=== PATIENT | female | born 2005 | race Two or more races ===

== ENCOUNTER 2025-02-21 01:48 | Emergency (ER) | payer MEDICAID, SELFPAY ==
[2025-02-21 02:15] VITALS: BP 136/87; PULSE 105; RESP 18; TEMP 37.1; O2SAT 99
--- NOTE | 2025-02-21 02:42 | XR_ITS ---
Examination: Knee, right , 3 views Technique: Knee AP, lateral, oblique 3 views Date and time of exam: February 22, 2024 0241 hours INDICATIONS: Onset knee pain Site FINDINGS: No fracture or dislocation. No significant arthritic change IMPRESSION: No fracture. No significant arthritic change.
--- NOTE | 2025-02-21 02:42 | XR_ITS ---
Examination: Knee, left , 3 views Technique: Knee AP, lateral, oblique 3 views Date and time of exam: February 21, 2025 0241 hours INDICATIONS: Knee pain beginning last night. FINDINGS: Adequate bone density. No fracture or dislocation. No arthritic change. IMPRESSION: Negative examination
--- NOTE | 2025-02-21 02:45 | PD.EDLOWEX ---
Lower Extremity Injury RME/HPI General Chief Complaint: Extremity Injury, Lower Stated Complaint: BILATERAL KNEE PAIN Time Seen by Provider: 02/21/25 01:54 Arrival date/time: 02/21/25 01:48 RME / HPI RME / HPI Narrative: 19-year-old female presents to the ED with a complaint of bilateral knee pain. She denies any recent injury however she states she did start working in the [employer] last week and having to perform a lot of walking on uneven ground wearing hiking boots. She denies any heavy lifting. She states she had no pain while working or over the weekend, but the pain just began tonight after she went to bed. She denies any fever, chills, upper respiratory complaints, thigh pain or calf pain. She took a Tylenol prior to arrival. Related Data Previous Rx's ?Medication ?Instructions ?Recorded ibuprofen 600 mg tablet 600 mg PO Q8H PRN pain #30 tabs 02/21/25 Allergies Allergy/AdvReac Type Severity Reaction Status Date / Time Penicillins Allergy Severe Rash Verified 02/21/25 01:49 Review of Systems Review of Systems Systems Reviewed: All systems reviewed, normal except as documented Past Medical History Social History SMOKING STATUS: Never smoker ED Exam Narrative Physical exam: A&O, afebrile and non-toxic appearing 19-year-old female, appears mildly anxious. Lung sounds are clear, RRR, no greater saphenous vein tenderness. No significant pain with patellar movement bilaterally. No pain with medial or lateral stress bilaterally. Negative anterior/posterior drawer sign bilaterally. Mild lateral compartment tenderness bilaterally. Moves all other extremities well. Course Course Course Narrative: Patient was given ibuprofen 600 mg p.o. XR left knee reveals: No obvious fracture or dislocation (preliminary ED read) XR right knee reveals: No obvious fracture or dislocation (preliminary ED read). Quality Measures none Orders Category Date Time Status XR knee LT 3V Stat Exams 02/21/25 02:42 Taken XR knee RT 3V Stat Exams 02/21/25 02:42 Taken Ibuprofen Tab [Motrin Tab] Med 02/21/25 02:42 Discontinued 600 mg PO X1 ONE Vital Signs Vital signs: Vital Signs Temperature 98.8 F 02/21/25 02:15 Pulse Rate 105 H 02/21/25 02:15 Respiratory Rate 18 02/21/25 02:15 Blood Pressure 136/87 H 02/21/25 02:15 Pulse Oximetry (%) 99 02/21/25 02:15 Oxygen Delivery Method Room Air 02/21/25 02:15 Extremity Injury, Lower MDM Narrative MDM Narrative:: Symptoms, exam and diagnostic studies are consistent with: Bilateral knee pain without injury. Patient was discharged home in stable condition. Patient/family advised to follow-up with their PCP in 24-48 hours. Encouraged to return to the ED for any new or worsening symptoms. Patient data External records reviewed:: None Clinical information provided by:: patient Social determinants that could affect healthcare access:: none Patient has the following chronic illnesses:: N/A How is presenting disease/condition affected by chronic disease/condition?: no chronic disease Evaluation data The following diagnostics were reviewed and interpreted by me:: radiology exam(s) Lab and/or radiology exams considered but not ordered:: N/A Interpretation Summary: As noted above Medications / Prescriptions Medications or Prescriptions considered but not ordered:: N/A Medication administrations:: Medication Administration History Discontinued Medications Ibuprofen (Ibuprofen Tab 600 Mg Tablet) 600 mg PO X1 ONE Stop: 02/21/25 02:43 Last Admin: 02/21/25 03:27 Dose: 600 mg Documented By: CVL As noted above Consultations Consultation(s) initiated? (list below): No Diagnosis Extremity Injury, Lower Differential Diagnosis: acute internal derangement of knee and other (Bilateral knee pain) Most likely diagnosis given after review of the tests above:: Bilateral knee pain/strain Admission Indicated Admission indicated?: not indicated Explain why admission is indicated or not indicated:: Patient is stable for discharge Admission Request Was there a request for admission?: No Admission Attestation Admission request attestation: N/A Disposition Plan Disposition Plan: Discharge Discharge Attestation Discharge Attestation: The patient and all family members were given an opportunity to ask questions and understood the discharge instructions. Discharge instructions specifically effects, indications for sooner follow up or return to the emergency department, and the expected course of current diagnosis. Patient condition: Stable Discharge Plan Plan Patient Disposition: HOME (Self Care) Discharge Disposition comment: Stable Prescriptions/Referrals Prescriptions/Med Rec: New ibuprofen 600 mg tablet 600 mg PO Q8H PRN (Reason: pain) Qty: 30 0RF Referrals: Donald Avina MD [Primary Care Provider] - In 1 week Problem List Clinical Impression: Bilateral knee pain Patient/Caregiver Discharge Instructions Education Materials: ED Knee Pain of Uncertain Cause Additional Instructions: Take the anti-inflammatory medications as prescribed, as needed for knee pain. The x-rays do not show any obvious fracture or dislocation. These x-rays will be read by the radiologist in the morning. If they see anything different, you will be contacted. Follow-up with your primary care physician in 24 to 48 hours. Return to the ED for any new or worsening symptoms. Print Language: Occitan Stand Alone Forms: Nelly Award Info., Patient Portal Info Letter PA/ROSITA Supervising Physician BALA/ROSITA Supervising Physician: Dr. Telles
[2025-02-21] MEDS: IBUPROFEN TAB 600 MG TABLET PO (03:27)
[2025-02-21 04:31] VITALS: RESP 12
== END 2025-02-21 04:32 | disposition home or self-care (01) ==
PROVIDERS: Emergency Provider Emergency Medicine; PCP Pediatrics
DX: M25.562 Pain in left knee (principal); M25.561 Pain in right knee
CPT/HCPCS: 73562; 99283; A9270